=== PATIENT | female | born 1985 | race Caucasian/White ===

== ENCOUNTER 2017-10-26 09:51 | Emergency (ER) | payer OTHER ==
--- NOTE | 2017-10-26 10:39 | ED Physician Documentation ---
PD HPI Fall - Stated complaint Stated Complaint: FELL LT FOOT LAC/LT ELBOW PX - Chief complaint Chief Complaint: Ext Problem - History obtained from History obtained from: Patient, Family - History of Present Illness Mechanism of injury: Slipped Fall distance: Standing position Where injury occurred: Home Timing - onset: Today Injury(ies) location: Left Uppper Extremity, Left Lower Extremity Quality of pain: Pain Associated symptoms: No: LOC, AMS, Amnesia Symptoms improve with: Rest Worsens with: Movement, Palpation Contributing factors: No: Anticoagulated Similar symptoms before: Has not had sx before Recently seen: Not recently seen - Additional information Additional information: 32-year-old female was in the shower today when she stepped out of the shower she slipped on some soap to been spread all over the bathroom by her 2-year-old daughter. She is fallen and hit her elbow and cut her toe both on the left side. She denies any pain in the elbow or wrist has pain to extension and flexion of the elbow. Review of Systems Constitutional: denies: Fever Eyes: denies: Decreased vision Nose: denies: Congestion Throat: denies: Sore throat Respiratory: denies: Cough GI: denies: Vomiting Skin: reports: Laceration (s) Musculoskeletal: reports: Extremity pain, Joint pain. 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 - Present Medications Home Medications: Ambulatory Orders Medication Instructions Recorded Confirmed No Known Home Medications [No 10/26/17 10/26/17 Known Home Medications] - Allergies Allergies/Adverse Reactions: Allergies Allergy/AdvReac Type Severity Reaction Status Date / Time cephalexin [From Keflex] Allergy Rash Verified 10/26/17 10:01 Penicillins Allergy Rash Verified 10/26/17 10:01 - Social History Does the pt smoke?: No Smoking Status: Never smoker - Immunizations Immunizations are current?: No Immunizations: TDAP >10years/unknown PD ED PE NORMAL - Vitals Vital signs reviewed: Yes (tachy and hypertensive ) - General General: Alert and oriented X 3, Well developed/nourished, Other (32-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 There is no significant pain with supination or pronation of the forearm or flexion extension of the wrist.And a partial range of motion is tested without pain in the shoulder it does affect pain in the elbow. Distal neurovascular components are intact. On the left great toe there is a flap Loret laceration approximately 3 and half centimeters which is clean and on the medial aspect of the distal phalange.) - Neuro Neuro: Alert and oriented X 3, No motor deficit, No sensory deficit, Normal speech Eye Opening: Spontaneous Motor: Obeys Commands Verbal: Oriented GCS Score: 15 - Psych Psych: Normal mood, Normal affect Results - Vitals Vitals: Vital Signs - 24 hr 10/26/17 10/26/17 09:58 11:39 Temperature 36.8 C 36.9 C Heart Rate 110 H 85 Respiratory 16 20 Rate Blood Pressure 142/88 H 130/75 O2 Saturation 100 100 Oxygen O2 Source Room air - Rads (name of study) left elbow Radiology: Prelim report reviewed (Impression: Normal elbow radiography.), EMP read indepedently, See rad report Procedures - Laceration (location) left great toe Length in cm: 3.5 Wound type: Curved, Flap Neurovascular status: Sensory intact, Motor intact, Vascular intact Anesthesia: Lidocaine 1% Wound Preparation: Hibiclens, Irrigated copiously NS, Wound explored, To the base Skin layer closure: Nylon, Interrupted, Size #-0 - enter number (5-0) Other: Patient tolerated well, No complications, Neurovascular intact, Dressing applied, Tetanus UTD Complexity: Simple PD MEDICAL DECISION MAKING - ED course Complexity details: reviewed results, re-evaluated patient, considered differential, d/w patient, d/w family ED course: 32-year-old female with a slip fall and sprain of her left elbow is placed into a posterior splint and into a sling and she will need a follow-up evaluation in 1 week. Her laceration is fixed with interrupted nylon. Departure - Departure Disposition: 01 Home, Self Care Clinical Impression: Toe laceration Qualifiers: Encounter type: initial encounter Toe: great toe Damage to nail status: without damage Foreign body presence: without foreign body Laterality: left Qualified Code(s): S91.112A - Laceration without foreign body of left great toe without damage to nail, initial encounter Sprain of elbow, left Qualifiers: Encounter type: initial encounter Qualified Code(s): S53.402A - Unspecified sprain of left elbow, initial encounter Condition: Stable Instructions: ED Sprain Elbow, ED Laceration Foot Follow-Up: JEANETTE Moran [Provider Group] Comments: Wear the sling and splint for comfort. You will need a follow-up x-ray or reevaluation in 1 week. You should have the sutures removed from your great toe in that 7-10 day timeframe as well.
[2017-10-26] MEDS ORDERED: KETOROLAC 60 MG/2 ML VIAL IM STA (10:43)
[2017-10-26] MEDS ORDERED: LIDOCAINE 1% 2 ML VIAL ONE (11:03)
--- NOTE | 2017-10-26 11:14 | XRAY Report ---
EXAM: LEFT ELBOW RADIOGRAPHY EXAM DATE: 10/26/2017 10:57 AM. CLINICAL HISTORY: Elbow pain post injury. COMPARISON: None. TECHNIQUE: 3 views. FINDINGS: Bones: Normal. No fractures or bone lesions. Joints: Normal. No effusion. No subluxation. Soft Tissues: Normal. No soft tissue swelling. IMPRESSION: Normal elbow radiography. [facility] Referring Provider Line: [phone] SITE ID: [id number]
[2017-10-26 11:40] VITALS: BP 130/75
== END 2017-10-26 12:53 | disposition home or self-care (01) ==
LOC: ED 09:51
DX: S91.112A Laceration without foreign body of left great toe without damage to nail, initial encounter (principal); S53.402A Unspecified sprain of left elbow, initial encounter; W01.10XA Fall on same level from slipping, tripping and stumbling with subsequent striking against unspecified object, initial encounter; Y93.E1 Activity, personal bathing and showering; Y92.002 Bathroom of unspecified non-institutional (private) residence as the place of occurrence of the external cause
CPT/HCPCS: 12002; 96372; 99283

== ENCOUNTER 2019-11-11 13:55 | Emergency (ER) | payer OTHER ==
--- NOTE | 2019-11-11 15:03 | ED Physician Documentation ---
History of Present Illness - Stated complaint Stated Complaint: BODY PX,DIARRHEA,SOA - Chief complaint Chief Complaint: General - History obtained from History obtained from: Patient (34-year-old female patient comes in today with chief complaint of "not feeling well for about 4 days". She has had a low-grade fever, under 101 for several day, A headache, body aches. She has also developed a sore throat over the last 2 days, states it is more of a itching irritation more than sharp pain when swallowing. Today she feels like she cannot take a full breath, even though even though she does not feel short of breath. Today she feels that slight dizzy. 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 She did take today off of work. Last dose ibuprofen 400 mg was 2 hours prior to ar rival.) Review of Systems Constitutional: reports: Fever, Chills, Fatigue. denies: Sweats Eyes: reports: Reviewed and negative Ears: denies: Loss of hearing, Ear pain Nose: reports: Rhinorrhea / runny nose. denies: Sinus pressure / pain Throat: reports: Sore throat. denies: Swollen tonsils Cardiac: denies: Chest pain / pressure, Palpitations Respiratory: reports: Dyspnea. denies: Cough, Wheezing GI: reports: Reviewed and negative : reports: Reviewed and negative Skin: denies: Rash, Lesions Musculoskeletal: reports: Other (General body aches) Neurologic: reports: Headache. 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 - Present Medications Home Medications: Ambulatory Orders Medication Instructions Recorded Confirmed No Known Home Medications 10/26/17 10/26/17 - Allergies Allergies/Adverse Reactions: Allergies Allergy/AdvReac Type Severity Reaction Status Date / Time cephalexin [From Keflex] Allergy Rash Verified 11/11/19 14:12 Penicillins Allergy Rash Verified 11/11/19 14:12 - Social History Does the pt smoke?: No Smoking Status: Never smoker - Immunizations Immunizations are current?: No Immunizations: TDAP >10years/unknown PD ED PE NORMAL - General General: Alert and oriented X 3, No acute distress, Well developed/nourished - HEENT HEENT: Atraumatic, PERRL, EOMI, Ears normal, Moist mucous membranes, Pharynx benign - Cardiac Cardiac: RRR, No murmur - Respiratory Respiratory: No respiratory distress, Clear bilaterally - Abdomen Abdomen: Normal bowel sounds, Soft, Non tender, Non distended - Back Back: No CVA TTP - Derm Derm: Normal color, Warm and dry, No rash - Neuro Neuro: Alert and oriented X 3, lieutenant governor 2-12 intact PD ED PE EXPANDED - Neck Neck: Adenopathy (Anterior cervical bilateral) Results - Vitals Vitals: Vital Signs - 24 hr 11/11/19 14:12 Temperature 36.5 C Heart Rate 81 Respiratory 14 Rate Blood Pressure 156/90 H O2 Saturation 98 Oxygen O2 Source Room air - Labs Labs: Laboratory Tests 11/11/19 11/11/19 15:10 15:10 Influenza A (Rapid) Negative Influenza B (Rapid) Negative Group A Strep Rapid Negative - Rads (name of study) No standard instances Radiology: Final report received (Final result: No acute cardiopulmonary abnormality seen.) PD MEDICAL DECISION MAKING - ED course Complexity details: reviewed results, re-evaluated patient, considered diffe rential (Strep throat, influenza A, and Covid 19, community-acquired pneumonia.), d/w patient Departure - Departure Disposition: 01 Home, Self Care Clinical Impression: Viral URI Condition: Good Instructions: ED Viral Syndrome Comments: Your influenza test, and strep test today were both negative. You were also tested for the Covid-9 virus today. It will take roughly 2 to 3 days for the results come back. You can access your health records through[facility] online. If the Covid-19 test result comes back negative you may return to work after November 14, 2019, if the Covid-19 test result comes back positive I recommended you self quarantine at home for minimum 14 days. Forms: Activity restrictions
--- NOTE | 2019-11-11 15:20 | XRAY Report ---
Reason: cough Procedure Date: 11/11/2019 Accession Number: [id number] / [id number] Procedure: XR - Chest 2 View X-Ray CPT Code: 39403 Final Report FULL RESULT: EXAM: CHEST RADIOGRAPHY EXAM DATE: 11/11/2019 03:09 PM. CLINICAL HISTORY: Cough, shortness of breath, fever. COMPARISON: None. TECHNIQUE: 2 views. FINDINGS: Lungs/Pleura: No focal consolidation. No pleural effusion. No pneumothorax. Normal volumes. Mediastinum: Heart and mediastinal contours are normal. Other: None. IMPRESSION: No acute cardiopulmonary abnormality. [facility]
[2019-11-11 15:32] LABS: RAPID STREP SCREEN Negative (Negative)
[2019-11-11 16:11] VITALS: BP 140/84
== END 2019-11-11 16:11 | disposition home or self-care (01) ==
LOC: ED 13:55
DX: J06.9 Acute upper respiratory infection, unspecified (principal)
CPT/HCPCS: 71046; 81599; 87070; 87275; 87276; 87430; 99282; 99284

== ENCOUNTER 2020-01-19 20:27 | Emergency (ER) | payer OTHER ==
[2020-01-19 20:35] VITALS: BP 148/96
--- NOTE | 2020-01-19 21:10 | ED Physician Documentation ---
PD HPI MAJOR BURN - Stated complaint Stated Complaint: BURN - RT SIDE CHEST - Chief complaint Chief Complaint: General - History obtained from History obtained from: Patient - History of Present Illness Timing - onset: How many days ago (3) PD HPI MAJOR BURN MECHANISM: Other (hot water) Burn(s) location: Chest (some near boiling water splashed onto her chest at work. Caused local patch of blistering burn. She used some ointment on it. It started to get red around it the past day, with red streak away from it. 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 - Present Medications Home Medications: Ambulatory Orders Medication Instructions Recorded Confirmed Alprazolam [Xanax] 0.25 mg PO PRN PRN 01/19/20 01/19/20 Dextroamphetamine/Amphetamine 10 mg PO DAILY 01/19/20 01/19/20 [Adderall Xr 10 mg Capsule] Doxycycline Monohydrate 100 mg PO BID #14 tablet 01/19/20 Fluoxetine HCl [Prozac] 20 mg PO QPM 01/19/20 01/19/20 Mupirocin 1 applic TP TID #15 g 01/19/20 Naproxen 500 mg PO BID #20 tablet 01/19/20 - Allergies Allergies/Adverse Reactions: Allergies Allergy/AdvReac Type Severity Reaction Status Date / Time cephalexin [From Keflex] Allergy Rash Verified 01/19/20 20:35 Penicillins Allergy Rash Verified 01/19/20 20:35 - Social History Does the pt smoke?: No Smoking Status: Never smoker Does the pt have substance abuse?: No - Immunizations Immunizations are current?: No Immunizations: TDAP >10years/unknown - POLST Patient has POLST: No PD ED PE NORMAL - Vitals Vital signs reviewed: Yes - General General: Alert and oriented X 3, No acute distress, Well developed/nourished - Derm Derm: Normal color, Warm and dry, Other (right lateral chest on side of breast with ovoid partial thickness burn about 2 x 5 cm with yellow base. Some surrounding redness and a lymphangitic streak running toward 2 o'clock direction. No fluctuance. ) Results - Vitals Vitals: Vital Signs - 24 hr 01/19/20 20:30 Temperature 35.9 C L Heart Rate 89 Respiratory 14 Rate Blood Pressure 148/96 H O2 Saturation 98 Oxygen O2 Source Room air PD MEDICAL DECISION MAKING - ED course Complexity details: considered differential (local partial thickness burn with infection starting. ), d/w patient Departure - Departure Disposition: 01 Home, Self Care Clinical Impression: Wound infection Burn of chest wall Qualifiers: Encounter type: initial encounter Burn degree: partial thickness (2nd degree) Qualified Code(s): T21.21XA - Burn of second degree of chest wall, initial encounter Condition: Stable Record reviewed to determine appropriate education?: Yes Instructions: ED Burn Wound Check FU Infec Follow-Up: LILO DOWNEY MD [Primary Care Provider] - Prescriptions: Doxycycline Monohydrate 100 mg PO BID #14 tablet Mupirocin 1 applic TP TID #15 g Naproxen 500 mg PO BID #20 tablet Comments: Cleanse gently with soap and water 2-3 times a day and apply mupirocin antibiotic ointment. You can apply burn cream or aloe over that as well. Cover with absorbent or dry dressing to protect it. Doxycycline oral antibiotic as well twice daily for a week and naproxen anti- inflammatory 2-3 times a day for the next several days to week. Off work tomorrow. Return on if improving well enough. I would anticipated him proving reasonably well in the next couple of days and resolved within 3 to 5 days (the infection part) and then the wound heal over a week or so. Recheck if not progressing in that timeframe. Forms: Activity restrictions Discharge Date/Time: 01/19/20 21:49
[2020-01-19] MEDS ORDERED: IBUPROFEN 800 MG TABLET PO STA (21:34)
[2020-01-19] MEDS ORDERED: MUPIROCIN 2% OINT 1 GM TOP STA (21:34)
[2020-01-19] MEDS ORDERED: DOXYCYCLINE 100 MG TABLET PO STA (21:34)
== END 2020-01-19 21:49 | disposition home or self-care (01) ==
LOC: ED 20:27
DX: T21.21XA Burn of second degree of chest wall, initial encounter (principal); L08.9 Local infection of the skin and subcutaneous tissue, unspecified; X12.XXXA Contact with other hot fluids, initial encounter; Y99.0 Civilian activity done for income or pay
CPT/HCPCS: 99282; 99283; A9270

== ENCOUNTER 2024-04-10 04:46 | Emergency (ER) | payer SELFPAY ==
--- NOTE | 2024-04-10 05:06 | ED Physician Documentation ---
PD HPI NVD - Stated complaint Stated Complaint: VOMITING - Chief complaint Chief Complaint: Abd Pain - History obtained from History obtained from: Patient - History of Present Illness Timing - onset: Enter time (1100), Yesterday Timing - duration: Days (1) Timing - details: Abrupt onset, Still present Associated symptoms: Abdominal pain Contributing factors: Alcohol use. No: Sick contact, Bad food, Anticoagulated, Diabetes Improved by: Vomiting Similar symptoms before: Has not had sx before Recently seen: Not recently seen - Additonal information Additional information: Previously well Ladonna Arenas presents to our emergency department with chief complaint of vomiting and epigastric abdominal pain. She presents with pale face and pale lips. Her states she appears more pale than normal but usually she is pale.The patient denies vomiting of anything that looks like coffee grounds or black or brown material. She denies any dark or tarry stool she does state that she has had vaginal bleeding for 6 to 7 months and she is passing some clots and has some pain associated with that. She indicates her bleeding is somewhat worse than normal recently. She has not sought follow-up for this as yet. Review of Systems Constitutional: reports: Chills, Sweats. denies: Fever Ears: denies: Ear pain Nose: denies: Rhinorrhea / runny nose, Congestion Throat: denies: Sore throat Cardiac: denies: Chest pain / pressure, Palpitations Respiratory: denies: Dyspnea, Cough GI: reports: Abdominal Pain, Nausea, Vomiting. denies: Constipation, Diarrhea, Hematemesis, Bloody / black stool : reports: Vaginal bleeding (chronic passing clots >6 months). denies: Dysuria, Frequency Skin: denies: Rash Musculoskeletal: denies: Neck pain, Back pain, Extremity pain Neurologic: denies: Generalized weakness, Focal weakness PD PAST MEDICAL HISTORY - Past Medical History Past Medical History: Yes GI: GERD Psych: Depression, Anxiety, ADD/ADHD - Past Surgical History Past Surgical History: Yes /[employer]: section - Present Medications Home Medications: Ambulatory Orders Medication Instructions Recorded Confirmed Alprazolam [Xanax] 0.25 mg PO PRN PRN 01/19/20 04/10/24 Dextroamphetamine/Amphetamine 10 mg PO DAILY 01/19/20 04/10/24 [Adderall Xr 10 mg Capsule] Fluoxetine HCl [Prozac] 20 mg PO QPM 01/19/20 04/10/24 - Allergies Allergies/Adverse Reactions: Allergies Allergy/AdvReac Type Severity Reaction Status Date / Time cephalexin [From Keflex] Allergy Rash Verified 01/19/20 20:35 Penicillins Allergy Rash Verified 01/19/20 20:35 - Social History Does the pt smoke?: No Smoking Status: Never smoker Does the pt drink ETOH?: Yes ETOH Use: Liquor Does the pt have substance abuse?: No - Immunizations Immunizations are current?: No Immunizations: TDAP >10years/unknown - POLST Patient has POLST: No PD ED PE NORMAL - Vitals Vital signs reviewed: Yes (Hypertensive with wide pulse pressure) - General General: Alert and oriented X 3, Well developed/nourished, Other (The patient appears anxious and is shivering. She is pale and diaphoretic.) - HEENT HEENT: Atraumatic, PERRL, EOMI, Other (Pale lips pale conjunctive pale face) - Neck Neck: Supple, no meningeal sign, No bony TTP - Cardiac Cardiac: RRR, No murmur - Respiratory Respiratory: No respiratory distress, Clear bilaterally - Abdomen Abdomen: Normal bowel sounds, Soft, Non distended, No organomegaly, Other (Epigastric tenderness is present right upper quadrant tenderness has pain referred to the epigastrium.) - Back Back: No CVA TTP, No spinal TTP - Derm Derm: Normal color, Warm and dry, No rash Results - Vitals Vitals: Vital Signs - 24 hr 04/10/24 04/10/24 04/10/24 04:50 05:24 05:40 Temperature 36.9 C 36.7 C Heart Rate 85 73 83 Heart Rate [ Monitoring electrodes] Respiratory 24 20 22 Rate Blood Pressure 144/47 H 146/65 H 126/61 Blood Pressure [Right Brachial artery] O2 Saturation 100 100 100 04/10/24 04/10/24 04/10/24 05:58 06:20 06:40 Temperature 36.7 C Heart Rate 78 95 75 Heart Rate [ Monitoring electrodes] Respiratory 19 15 14 Rate Blood Pressure 142/70 H 151/78 H 186/66 H Blood Pressure [Right Brachial artery] O2 Saturation 100 100 100 04/10/24 04/10/24 06:56 07:07 Temperature 36.9 C 36.9 C Heart Rate Heart Rate [ 83 83 Monitoring electrodes] Respiratory 19 13 Rate Blood Pressure Blood Pressure 125/63 127/71 [Right Brachial artery] O2 Saturation 100 100 Oxygen O2 Source Room air - Labs Labs: Laboratory Tests 04/10/24 04/10/24 04/10/24 05:00 05:05 05:05 WBC RBC Hgb Hct MCV MCH MCHC RDW Plt Count MPV Neut # (Auto) Lymph # (Auto) [place] # (Auto) Eos # (Auto) Baso # (Auto) Absolute Nucleated RBC Nucleated RBC % Manual Slide Review WBC Morphology Platelet Estimate Platelet Morphology RBC Morph Micro Appear Sodium Potassium Chloride Carbon Dioxide Anion Gap BUN Creatinine Estimated GFR (MDRD) Glucose Calcium Total Bilirubin AST ALT Alkaline Phosphatase Total Protein Albumin Globulin Albumin/Globulin Ratio Lipase Urine Color YELLOW Urine Clarity HAZY Urine pH 7.5 Ur Specific [place] 1.015 Urine Protein 30 H Urine Glucose (UA) NEGATIVE Urine Ketones 15 H Urine Occult Blood LARGE H Urine Nitrite NEGATIVE Urine Bilirubin SMALL H Urine Urobilinogen 0.2 (NORMAL) Ur Leukocyte Esterase NEGATIVE Urine RBC 6-10 H Urine WBC 0-3 Ur Squamous Epith Cells RARE Squamous Urine Bacteria Rare Ur Microscopic Review INDICATED Urine Culture Comments NOT INDICATED Urine HCG, Qual NEGATIVE Blood Type Blood Type Recheck B POSITIVE Antibody Screen Crossmatch IS Only 04/10/24 04/10/24 04/10/24 05:10 05:10 05:40 WBC 8.5 RBC 2.41 L Hgb 4.5 L* Hct 17.6 L* MCV 73.0 L MCH 18.7 L MCHC 25.6 L RDW 22.5 H Plt Count 434 MPV 9.0 Neut # (Auto) 6.8 H Lymph # (Auto) 1.0 L [place] # (Auto) 0.6 Eos # (Auto) 0.0 Baso # (Auto) 0.0 Absolute Nucleated RBC 0.06 Nucleated RBC % 0.7 Manual Slide Review Indicated WBC Morphology NORMAL APPEARANCE Platelet Estimate NORMAL (130-450,000) Platelet Morphology NORMAL APPEARANCE RBC Morph Micro Appear 3+ HYPOCHROMASIA Sodium 135 Potassium 3.4 L Chloride 100 L Carbon Dioxide 24 Anion Gap 11.0 BUN 8 Creatinine 0.6 Estimated GFR (MDRD) 112 Glucose 138 H Calcium 9.8 Total Bilirubin 0.9 AST 64 H ALT 42 Alkaline Phosphatase 66 Total Protein 8.4 Albumin 4.5 Globulin 3.9 Albumin/Globulin Ratio 1.2 Lipase 59 Urine Color Urine Clarity Urine pH Ur Specific [place] Urine Protein Urine Glucose (UA) Urine Ketones Urine Occult Blood Urine Nitrite Urine Bilirubin Urine Urobilinogen Ur Leukocyte Esterase Urine RBC Urine WBC Ur Squamous Epith Cells Urine Bacteria Ur Microscopic Review Urine Culture Comments Urine HCG, Qual Blood Type B POSITIVE Blood Type Recheck Antibody Screen NEGATIVE Crossmatch IS Only See Detail Procedures - Bedside sono Bedside sono by EMP: With use of POCUS the right upper quadrant is imaged the gallbladder appears contracted there are no obvious stones. There is mild sonographic tenderness over the gallbladder this is much less so than the nonspecific epigastric pain to sonographic palpation. PD Medical Decision Making - ED course Complexity details: reviewed old records, reviewed results, re-evaluated patient, considered differential, d/w patient, d/w family Reviewed Lab Results: We reviewed a complete blood count which showed a normal white blood cell count and markedly depressed hemoglobin of 4.5 and a markedly depressed hematocrit of 17.6 there are no available comparisons. We did find with this to the platelet count was normal at 434,000 and the MCV was low at 73 with an RDW of 22.5. Chemistries showed a serum potassium low at 3.4 AST elevated at 64. Kidney and liver functions otherwise unremarkable urinalysis shows some occult blood 6-10 red blood cells per high-powered field and hCG is negative. This patient's blood work is concerning for an excess of loss of blood to a critical state. The patient's vital signs are stable without tachycardia or hypotension. The indices on the patient's blood counts indicate the process has been present for some time and the patient has had some time to adjust to this. The normal platelets and WBC indicate this is likely not bone marrow derived or pancytopenia. The patient's history of chronic vaginal blood loss is consistent with the findings on her blood counts and her history. There is no evidence of blood in stool or vomitus by patient history. ED course: Ladonna Arenas presents to the emergency department today with vomiting and epigastric pain. She is pale and diaphoretic on arrival and complained most about the nausea. We did not find any significant cannabis use we considered pancreatitis a possibility and she has normal lipase. She had no significant improvement in her nausea associated with the use of the Zofran. She was administered Phenergan with some improvement. The patient's blood counts came back critically low and despite this the patient's blood pressure and pulse remain normal. This generally indicates a chronic problem. She was not able to give us a history of hematemesis or dark tarry stool. The patient was able to provide history of chronic vaginal blood loss of a significant quantity over a significant period of time. She believes it may be 6 to 7 months. She was not able to get into follow-up as her has recently from the [facility] and they have not been able to schedule follow-up at the [facility]. At shift change the patient is getting a transfusion she has had some medication for pain and is no longer in distress. I have contacted our [facility] [employer] on-call Dr. Pappas who will check in on the patient today and I have left her care in the hands of the oncoming emergency department physician. Departure - Departure Clinical Impression: Vaginal bleeding Anemia Qualifiers: Anemia type: iron deficiency Iron deficiency anemia type: chronic blood loss Qualified Code(s): D50.0 - Iron deficiency anemia secondary to blood loss ( chronic) Condition: Critical Forms: PCP List
[2024-04-10] MEDS: SODIUM CHLORIDE 0.9% 1,000 ML IV STA (05:10)
[2024-04-10 05:17] LABS: BASOPHILS % (AUTO) 0.4 %; LYMPHOCYTES % (AUTO) 11.7 %; MEAN CORPUSCULAR HEMOGLOBIN 18.7 pg (27.0-31.0); MEAN CORPUSCULAR HGB CONC 25.6 g/dL (32.0-36.0); MONOCYTES # (AUTO) 0.6 10^3/uL (0.0-1.0); MONOCYTES % (AUTO) 6.8 %; NEUTROPHILS # (AUTO) 6.8 10^3/uL (1.5-6.6); NEUTROPHILS % (AUTO) 79.8 %; NRBC ABSOLUTE COUNT (AUTO) 0.06 x10^3/uL; NUCLEATED RED BLOOD CELLS AUTO 0.7 /100WBC; PLT - PLATELET COUNT 434 10^3/uL (130-450); RED BLOOD COUNT 2.41 10^6/uL (4.20-5.40); RED CELL DISTRIBUTION WIDTH 22.5 % (12.0-15.0); WHITE BLOOD COUNT 8.5 x10^3/uL (4.8-10.8)
[2024-04-10] MEDS: ONDANSETRON 4 MG/2 ML VIAL IVP STA (05:17)
[2024-04-10 05:22] LABS: BILIRUBIN,URINE SMALL (NEGATIVE); GLUCOSE, URINE (UA) NEGATIVE (NEGATIVE); KETONES,URINE (UA) 15 mg/dL (NEGATIVE); LEUKOCYTE ESTERASE, URINE NEGATIVE (NEGATIVE); NITRITE,URINE NEGATIVE (NEGATIVE); OCCULT BLOOD,URINE LARGE (NEGATIVE); PH,URINE 7.5 PH (5.0-7.5); PROTEIN,URINE 30 mg/dL (NEGATIVE); UROBILINOGEN,URINE 0.2 (NORMAL) E.U./dL (NORMAL)
[2024-04-10 05:24] LABS: HCG UR QUAL NEGATIVE
[2024-04-10 05:25] LABS: CLARITY,URINE HAZY (CLEAR)
[2024-04-10 05:30] LABS: HCT - HEMATOCRIT 17.6 % (37.0-47.0); HGB - HEMOGLOBIN 4.5 g/dL (12.0-16.0); SLIDE REVIEW? Indicated
[2024-04-10 05:33] LABS: ALBUMIN 4.5 g/dL (3.2-5.5); ALBUMIN/GLOBULIN RATIO 1.2 (1.0-2.2); BILIRUBIN,TOTAL 0.9 mg/dL (0.2-1.0); CALCIUM 9.8 mg/dL (8.5-10.3); CREATININE 0.6 mg/dL (0.6-1.3); POTASSIUM 3.4 mmol/L (3.5-4.5); TOTAL PROTEIN 8.4 g/dL (6.4-8.9)
[2024-04-10] MEDS: KETOROLAC 30 MG/ML VIAL IVP STA (05:36)
[2024-04-10 05:38] LABS: BACTERIA,URINE Rare /HPF (None Seen); SQUAMOUS EPITHELIAL CELL,UR RARE Squamous (<= Few); WBC,URINE 0-3 /HPF (0-5)
[2024-04-10] MEDS ORDERED: PROMETHAZINE 25 MG/1 ML VIAL ONE (05:39)
[2024-04-10] MEDS: PANTOPRAZOLE 40 MG VIAL IVP STA (05:45)
[2024-04-10] MEDS: PROMETHAZINE INJ 25 MG in SODIUM CHLORIDE 0.9% 50 ML IV STA (05:47)
[2024-04-10 05:51] LABS: PLATELET ESTIMATE, MANUAL NORMAL (130-450,000) (NORMAL); PLATELET MORPHOLOGY NORMAL APPEARANCE (NORMAL)
[2024-04-10 05:55] LABS: WBC MORPHOLOGY (MULTIPLE) NORMAL APPEARANCE (NORMAL)
[2024-04-10] MEDS: HYDROmorphone 1 MG/ML CARPUJECT IVP STA (06:29)
--- NOTE | 2024-04-10 07:39 | ED Physician Documentation ---
ED Addendum - Addendum Addendum: 04/10/24 07:[address] Orellana at this time for shift change. Briefly a 38-year-old woman who came in with vomiting and feels much better but incidentally noted was profound microcytic anemia with a hemoglobin of 4.5. She has been bleeding vaginally for 6 months or longer per her history without follow-up or intervention. She has kids at home and is not interested in further childbearing. Dr. Orellana had discussed the case by phone with Dr. Pappas, our on-call [employer] who recommended a pelvic ultrasound which is ordered and she is receiving blood at this time. Normally she would be admitted given her profound anemia but there are no beds available in the hospital so she is boarding in the emergency department for a 2 unit transfusion with recheck of H&H and gynecology consult. 04/10/24 08:27 Dr. Pappas has seen the patient and is going to write for high-dose OCP taper and I will let him know when the pelvic ultrasound is complete. 04/10/24 09:42 Pelvic ultrasound reported to me by RD as showing a large concerning uterine mass that does not look like a fibroid or other common nonmalignant etiology. I discussed with Dr. Pappas again we will try to get any pelvic MRI today to expedite her workup. 04/10/24 14:25 Pelvic MRI showing likely fibroid uterus with right ovarian cyst. Patient updated and is getting her second unit of packed red cells right now. 04/10/24 16:35 At this time, after 2 units of blood her repeat H&H is 6.1/22.4. I did recom mend a 3rd unit transfusion which she declined, she is feeling okay and is wanting to go home. She understand she is welcome to return anytime if worse. Disposition: Discharged home Condition: Stable Diagnoses: 1. Vomiting 2. Fibroid uterus 3. Vaginal bleeding 4. Profound anemia 04/10/24 16:55
--- NOTE | 2024-04-10 08:27 | CONSULTATION NOTE ---
Surgery Consult - Home Meds/Allergies Home Medications: Patient History Medication Instructions Recorded Confirmed Alprazolam [Xanax] 0.25 mg PO PRN PRN 01/19/20 04/10/24 Dextroamphetamine/Amphetamine 10 mg PO DAILY 01/19/20 04/10/24 [Adderall Xr 10 mg Capsule] Fluoxetine HCl [Prozac] 20 mg PO QPM 01/19/20 04/10/24 Allergies/Adverse Reactions: Allergies Allergy/AdvReac Type Severity Reaction Status Date / Time cephalexin [From Keflex] Allergy Rash Verified 01/19/20 20:35 Penicillins Allergy Rash Verified 01/19/20 20:35 - Vital Signs Vital Signs: Last Vital Signs Temp 98.4 F 04/10/24 07:22 Pulse 87 04/10/24 07:22 Resp 18 04/10/24 07:22 BP 116/74 04/10/24 07:22 Pulse Ox 98 04/10/24 07:22 O2 Flow Rate Intake & Output: Intake & Output 04/07/24 04/08/24 04/09/24 04/10/24 23:59 23:59 23:59 23:59 Intake Total 1066.000 Balance 1066.000 - Lab Results Result Diagrams: 04/10/24 05:10 04/10/24 05:10 - Consultation Note Consultation Note: HPI: Patient is a 38-year-old bleeding with chronic blood loss anemia presented today initially for nausea and vomiting and epigastric pain. She was pale appearing and her partner was worried about her. She has had no abnormal vomiting, and says this is just been food. During her evaluation, she was noted to be significantly anemic with an H&H of 4.5/17.6 and microcytic anemia. Upon further questioning she has had persistent vaginal bleeding for about 6 months and has not had intervention. 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 Partner has a vasectomy, so is not been on control for many years. Pain has improved as well as nausea and vomiting, although she did receive Dilaudid. Denies heavy bleeding currently and says it occasionally gets heavier when sitting on the toilet, but is not having any on her pad currently. All other symptoms reviewed and were negative except per HPI. 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 , children at home Family History No significant HEATER MECHANIC issues. Allergies Cephalexin, penicillin Medications Fluoxetine Ibuprofen Adderall Physical exam: General: Alert, oriented, no acute distress, pale Head: Normal cephalic atraumatic Eyes: PERRLA, extraocular motions intact. Respiratory: Normal rate of respiration. No accessory muscle use, normal respiratory effort. Cardiovascular: Regular rate and rhythm Abdomen: Nontender, nondistended Extremities: Normal range of motion Neuro: Oriented x3. Normal movements Psych: Appropriate mood and affect. Normal judgment and insight : deferred, currently being set up for ultrasound Plan 38-year-old with heavy abnormal uterine bleeding with chronic blood loss anemia 1. Abnormal uterine bleeding -Deferred cervical exam at this time, will consent in office. -As she is at her bleeding is not significant at this time, will likely need chronic management, discussed tapering with /2/ dosing of OCPs and continuous until we make a further plan in the office. -Transvaginal ultrasound pending, may alter plan. -Can also use ibuprofen 600 mg 3 times daily for 3 to 5 days. -Discussed etiology of abnormal bleeding and that we will have more workup. -Will likely consider OCPs, IUD, ablation. Discussed pros and cons of these options. Is not eager to move towards hysterectomy if more conservative measures can be compromised. -Will arrange outpatient follow-up with me in clinic next week. 2. Chronic blood loss anemia -Receiving 2 units of PRBCs in the ED. -Vitals normal and stable.
[2024-04-10] MEDS ORDERED: GADOTERATE MEGLUMINE 10 MMOL/20 ML VIAL ONE (10:27)
[2024-04-10] MEDS ORDERED: GADOTERATE MEGLUMINE 5 MMOL/10 ML VIAL ONE (10:27)
[2024-04-10] MEDS: LORazepam 2 MG/ML VIAL IVP STA (10:47)
--- NOTE | 2024-04-10 12:04 | Ultrasound Report ---
PROCEDURE: Pelvic Complete INDICATIONS: heavy vag bleed TECHNIQUE: Real-time transabdominal scanning was performed of the pelvic organs, with image documentation. COMPARISON: None FINDINGS: Uterus: Uterus is anteverted and enlarged in size at 14.7 x 12.0 x 12.4 cm. The myometrium is heter ogeneous. The endometrium is not seen. Large fibroid versus neoplasm involving the entire uterus me asuring 11.0 x 10.3 x 11.3 cm. Ovaries: Not seen Other: No free pelvic fluid. IMPRESSION: 1.Heterogeneous vascular mass involving the entire uterus, differential includes fibroid versus neopl asm. Pelvic MRI has been ordered at the time of dictation. 2.The ovaries are not seen. Reviewed by: Pedro Hayden MD on 04/10/2024 12:03 PM PDT Approved by: Pedro Hayden MD on 04/10/2024 12:03 PM PDT Station ID: [id number]
[2024-04-10] MEDS: GADOTERATE MEGLUMINE 10 MMOL/20 ML VIAL IVP ONE (12:36)
[2024-04-10 13:42] VITALS: O2SAT 100
--- NOTE | 2024-04-10 14:14 | MRI Report ---
PROCEDURE: Pelvis W/WO INDICATIONS: uterine mass CONTRAST: CLARISCAN 21.8 ML TECHNIQUE: Coronal ultra fast SE, sagittal breath-hold T2 FSE; axial T1 FSE with and without fat saturation thro ugh the pelvis. Optional long- and short-axis uterine nonbreath-hold T2 FSE through the uterus. Sag ittal or axial dynamic ultra fast GE during administration of contrast. Post-contrast axial or coron al ultra fast GE / 2-D spoiled GE with fat saturation from the iliac crests to the symphysis. Option al diffusion weighted imaging and ADC may be performed. COMPARISON: Pelvic ultrasound 04/10/2024. FINDINGS: Image quality: Excellent. Uterus: Uterus is anteverted and retroflexed. There is a large, well-circumscribed mass in the uteru s measuring 11.3 x 11.7 x 9.5 cm with multiple T2 hypointense nodules. Close inspection of the lower uterine segment demonstrates that the endometrial stripe is actually displaced to the left and marked ly compressed, and that this mass is within the right myometrium. There is a rim of myometrium surrou nding this mass entirely. The cervical canal appears within normal limits, containing a few tiny nabo thian cysts. Adnexa: The right ovary contains a unilocular, dominant homogeneous cyst measuring 7.0 x 5.9 x 5.4 cm . Left ovarian morphology is normal. Urinary system: Bladder wall is normal in thickness. Distal ureters are non distended. Urethra alen ears normal in morphology. Nodes and vessels: No pelvic or inguinal adenopathy by size criteria. Iliac vessels are normal in s ize. Bowel and peritoneum: No pathologic free pelvic fluid. Inferior colon and small bowel loops are nor mal in caliber. Soft tissues: No inguinal hernias. No findings of pelvic floor incompetence in the absence of provo cation. Bones: Marrow demonstrates normal overall signal. IMPRESSION: 11.7 cm probable myometrial mass most suggestive of a uterine fibroid. The endometrial canal appears to be compressed left. This mass being endometrial in origin is felt le ss likely. HSG could be performed for confirmation. 7.0 cm right ovarian simple cyst. This is most likely physiologic. There are no suspicious features. No pelvic adenopathy. Reviewed by: Socorro Pop MD on 04/10/2024 2:13 PM PDT Approved by: Socorro Pop MD on 04/10/2024 2:13 PM PDT Station ID: [id number]
[2024-04-10 16:27] LABS: HCT - HEMATOCRIT 22.4 % (37.0-47.0)
[2024-04-10 16:29] LABS: HGB - HEMOGLOBIN 6.1 g/dL (12.0-16.0)
[2024-04-10 16:54] VITALS: BP 116/58
== END 2024-04-10 16:51 | disposition home or self-care (01) ==
LOC: ED 04:46
DX: N93.9 Abnormal uterine and vaginal bleeding, unspecified (principal); D50.0 Iron deficiency anemia secondary to blood loss (chronic); D25.9 Leiomyoma of uterus, unspecified; R11.10 Vomiting, unspecified; Z79.899 Other long term (current) drug therapy
CPT/HCPCS: 36415; 36430; 72197; 76856; 80053; 81001; 81025; 83690; 85014; 85018; 85025; 86850; 86900; 86901; 86920; 96365; 96375; 99285; A9575; J1170; J2060; J7040; P9016; 81003; 87086

== ENCOUNTER 2024-04-16 14:20 | Outpatient (CLI) | payer SELFPAY ==
[2024-04-16 14:31] LABS: HCT - HEMATOCRIT 24.9 % (37.0-47.0); MEAN CORPUSCULAR HGB CONC 27.7 g/dL (32.0-36.0); MEAN CORPUSCULAR VOLUME 79.6 fL (81.0-99.0); MEAN PLATELET VOLUME 8.7 fL (7.9-10.8); RED BLOOD COUNT 3.13 10^6/uL (4.20-5.40); RED CELL DISTRIBUTION WIDTH 23.4 % (12.0-15.0); WHITE BLOOD COUNT 5.1 x10^3/uL (4.8-10.8)
[2024-04-16 14:46] LABS: HGB - HEMOGLOBIN 6.9 g/dL (12.0-16.0)
[2024-04-16 15:07] LABS: THYROID STIMULATING HORMONE 1.99 uIU/mL (0.34-5.60)
[2024-04-16 15:12] LABS: FERRITIN 6.3 ng/mL (11.0-306.8)
[2024-04-16 15:20] LABS: ALBUMIN 4.2 g/dL (3.2-5.5); ALBUMIN/GLOBULIN RATIO 1.2 (1.0-2.2); BILIRUBIN,TOTAL 0.7 mg/dL (0.2-1.0); CALCIUM 9.4 mg/dL (8.5-10.3); CREATININE 0.6 mg/dL (0.6-1.3); POTASSIUM 4.1 mmol/L (3.5-4.5); TOTAL PROTEIN 7.7 g/dL (6.4-8.9)
[2024-04-16 21:58] LABS: ESTIMATED AVERAGE GLUCOSE 100 mg/dL (70-100); HEMOGLOBIN A1c% 5.1 % (4.27-6.07)
== END 2024-04-16 14:21 | disposition home or self-care (01) ==
LOC: LAB 14:20
PROVIDERS: ATTEND Obstetrics & Gynecology
DX: R94.5 Abnormal results of liver function studies (principal); F10.10 Alcohol abuse, uncomplicated; D50.0 Iron deficiency anemia secondary to blood loss (chronic); N93.9 Abnormal uterine and vaginal bleeding, unspecified
CPT/HCPCS: 36415; 80053; 82728; 83036; 83540; 84443; 84466; 85027

== ENCOUNTER 2024-05-12 22:44 | Emergency (ER) | payer MEDICAID ==
--- NOTE | 2024-05-12 23:10 | ED Physician Documentation ---
PD HPI NVD - Stated complaint Stated Complaint: VOMITING - Chief complaint Chief Complaint: Abd Pain - History obtained from History obtained from: Patient - History of Present Illness Timing - onset: How many hours ago, Today Timing - duration: Hours Timing - details: Abrupt onset, Still present Associated symptoms: Abdominal pain (intermittent mid abd cramping.), Loss of appetite. No: Fever, Hematemesis Contributing factors: No: Sick contact, Bad food Improved by: Vomiting Worsened by: Eating Similar symptoms before: No diagnosis (similar about a week ago treated in ER.) Recently seen: Clinic (Seen [facility] with repeat Hgb of 6.9, up from 6.1 and is scheduled for pre-op appt then hysterectomy early May.), Emergency Dept (for N/V episode similar to current presentation. Treated with fluids and meds with improvement.) Review of Systems Constitutional: denies: Fever, Chills Neurologic: reports: Generalized weakness. 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 - Present Medications Home Medications: Ambulatory Orders Medication Instructions Recorded Confirmed Alprazolam [Xanax] 0.25 mg PO PRN PRN 01/19/20 04/10/24 Dextroamphetamine/Amphetamine 10 mg PO DAILY 01/19/20 04/10/24 [Adderall Xr 10 mg Capsule] Fluoxetine HCl [Prozac] 20 mg PO QPM 01/19/20 04/10/24 Ibuprofen [Motrin] 600 mg PO TID #30 tab 04/10/24 Norgestimate-Ethinyl Estradiol 1 each PO DAILY #90 tablet 04/10/24 [Sprintec 28 Day Tablet] Ondansetron Odt [Zofran] 4 mg TL Q6H PRN #10 tablet 05/13/24 Promethazine Supp [Phenergan Supp] 25 mg NH Q6H PRN #5 supp 05/13/24 Tranexamic Acid 650 mg PO TID #21 tablet 05/13/24 - Allergies Allergies/Adverse Reactions: Allergies Allergy/AdvReac Type Severity Reaction Status Date / Time cephalexin [From Keflex] Allergy Rash Verified 05/12/24 22:47 Penicillins Allergy Rash Verified 05/12/24 22:47 - Social History Does the pt smoke?: No Smoking Status: Never smoker Does the pt drink ETOH?: Yes Does the pt have substance abuse?: No - Immunizations Immunizations are current?: No Immunizations: TDAP >10years/unknown - POLST Patient has POLST: No PD ED PE NORMAL - Vitals Vital signs reviewed: Yes - General General: Alert and oriented X 3, Well developed/nourished, Other (appears ill with holding emesis bag and having heaving. ) - Cardiac Cardiac: No murmur. No: RRR (regular but tachycardic.) - Respiratory Respiratory: No respiratory distress, Clear bilaterally - Abdomen Abdomen: Soft, Non distended, Other (tender mid abd without guarding. Some tender left. Not tender RLQ nor GB area in particular. ). No: Normal bowel sounds (diminished diffusely. ) - Female Female : Deferred - Rectal Rectal: Deferred - Back Back: No CVA TTP - Derm Derm: Normal color, Warm and dry Results - Vitals Vitals: Vital Signs - 24 hr 05/12/24 05/13/24 05/13/24 23:51 01:00 01:57 Temperature 37 C Heart Rate 103 H 89 89 Respiratory 18 16 16 Rate Blood Pressure 128/62 133/68 H 122/71 O2 Saturation 99 99 99 Oxygen O2 Source Room air - Labs Labs: Laboratory Tests 05/12/24 05/12/24 05/12/24 22:47 23:40 23:40 WBC 4.2 L RBC 3.23 L Hgb 6.9 L* Hct 25.3 L MCV 78.3 L MCH 21.4 L MCHC 27.3 L RDW 21.0 H Plt Count 330 MPV 9.2 Neut # (Auto) 2.5 Lymph # (Auto) 1.0 L [place] # (Auto) 0.5 Eos # (Auto) 0.1 Baso # (Auto) 0.1 Absolute Nucleated RBC 0.00 Nucleated RBC % 0.0 Sodium 136 Potassium 3.8 Chloride 102 Carbon Dioxide 23 Anion Gap 11.0 BUN 8 Creatinine 0.6 Estimated GFR (MDRD) 112 Glucose 95 Calcium 9.4 Magnesium 1.5 L Total Bilirubin 0.5 AST 54 H ALT 41 Alkaline Phosphatase 58 Total Protein 7.1 Albumin 3.8 Globulin 3.3 Albumin/Globulin Ratio 1.2 Lipase 68 Urine Color DARK YELLOW Urine Clarity CLOUDY Urine pH 7.5 Ur Specific [place] 1.015 Urine Protein 30 H Urine Glucose (UA) NEGATIVE Urine Ketones NEGATIVE Urine Occult Blood LARGE H Urine Nitrite NEGATIVE Urine Bilirubin NEGATIVE Urine Urobilinogen 0.2 (NORMAL) Ur Leukocyte Esterase NEGATIVE Urine RBC TNTC H Urine WBC 6-10 H Urine WBC Clumps PRESENT Ur Squamous Epith Cells RARE Squamous Urine Bacteria Rare Ur Microscopic Review INDICATED Urine Culture Comments NOT INDICATED Blood Type Antibody Screen 05/12/24 23:40 WBC RBC Hgb Hct MCV MCH MCHC RDW Plt Count MPV Neut # (Auto) Lymph # (Auto) [place] # (Auto) Eos # (Auto) Baso # (Auto) Absolute Nucleated RBC Nucleated RBC % Sodium Potassium Chloride Carbon Dioxide Anion Gap BUN Creatinine Estimated GFR (MDRD) Glucose Calcium Magnesium Total Bilirubin AST ALT Alkaline Phosphatase Total Protein Albumin Globulin Albumin/Globulin Ratio Lipase Urine Color Urine Clarity Urine pH Ur Specific [place] Urine Protein Urine Glucose (UA) Urine Ketones Urine Occult Blood Urine Nitrite Urine Bilirubin Urine Urobilinogen Ur Leukocyte Esterase Urine RBC Urine WBC Urine WBC Clumps Ur Squamous Epith Cells Urine Bacteria Ur Microscopic Review Urine Culture Comments Blood Type B POSITIVE Antibody Screen NEGATIVE PD Medical Decision Making - ED course Complexity details: reviewed old records (prior visit with iaging results showing large uterine fibroid. No abd process at the time with presentation similar to current of N/V and abd crmaps. ), reviewed results (.1 before that, and certainly better than the 4.5 initial for which she was transfused. ), considered differential (compared to recent blood test. Is on hormones. Consider adding TXA short term. Appt soon for hysterectomy early May. I assume the N/V/cramps is not caused by the uterine bleeding. Does not seem to have biliary cause on prior imaging. I did not see need for reimaging. LFTs good.), d/w patient Departure - Departure Disposition: 01 Home, Self Care Clinical Impression: Nausea and vomiting, Anemia, Fibroid, uterine Condition: Stable Record reviewed to determine appropriate education?: Yes Instructions: ED Nausea Vomiting [facility]: [facility] [Provider Group] Prescriptions: Promethazine Supp [Phenergan Supp] 25 mg NH Q6H PRN #5 supp PRN Reason: Nausea / Vomiting Tranexamic Acid 650 mg PO TID #21 tablet Ondansetron Odt [Zofran] 4 mg TL Q6H PRN #10 tablet PRN Reason: Nausea / Vomiting Comments: Mineral food initially and frequent fluids. Progress diet as tolerated. Probably not much other than sips of water and crackers overnight tonight and in the morning. Ondansetron if needed for nausea. I wrote a prescription for some as well. Promethazine suppositories if vomiting despite the Zofran. Add tranexamic acid 3 times daily for the next week to see if that helps with the uterine bleeding. Your blood count today is the same as the previous one at 6.9. Follow-up with the women's health clinic. I think that your nausea and vomiting now relate to a different cause than just the uterine bleeding. Continue with your omeprazole. Mineral food for the next week or 2. I sent your prescription to your preferred pharmacy. Forms: PCP List Discharge Date/Time: 05/13/24 01:57
[2024-05-12] MEDS: SODIUM CHLORIDE 0.9% 1,000 ML IV STA (23:44)
[2024-05-12] MEDS: DROPERIDOL 5 MG/2 ML VIAL IVP STA (23:45)
[2024-05-12] MEDS: KETOROLAC 15 MG/ML VIAL IVP STA (23:45)
[2024-05-12 23:48] LABS: BASOPHILS # (AUTO) 0.1 10^3/uL (0.0-0.1); BASOPHILS % (AUTO) 1.4 %; EOSINOPHILS # (AUTO) 0.1 10^3/uL (0.0-0.7); EOSINOPHILS % (AUTO) 1.2 %; HCT - HEMATOCRIT 25.3 % (37.0-47.0); LYMPHOCYTES % (AUTO) 24.5 %; MEAN CORPUSCULAR HEMOGLOBIN 21.4 pg (27.0-31.0); MEAN CORPUSCULAR HGB CONC 27.3 g/dL (32.0-36.0); MEAN CORPUSCULAR VOLUME 78.3 fL (81.0-99.0); MEAN PLATELET VOLUME 9.2 fL (7.9-10.8); MONOCYTES # (AUTO) 0.5 10^3/uL (0.0-1.0); NEUTROPHILS # (AUTO) 2.5 10^3/uL (1.5-6.6); NEUTROPHILS % (AUTO) 60.4 %; PLT - PLATELET COUNT 330 10^3/uL (130-450); RED BLOOD COUNT 3.23 10^6/uL (4.20-5.40); WHITE BLOOD COUNT 4.2 x10^3/uL (4.8-10.8)
[2024-05-12 23:49] LABS: BILIRUBIN,URINE NEGATIVE (NEGATIVE); GLUCOSE, URINE (UA) NEGATIVE (NEGATIVE); KETONES,URINE (UA) NEGATIVE (NEGATIVE); LEUKOCYTE ESTERASE, URINE NEGATIVE (NEGATIVE); NITRITE,URINE NEGATIVE (NEGATIVE); OCCULT BLOOD,URINE LARGE (NEGATIVE); PH,URINE 7.5 PH (5.0-7.5); PROTEIN,URINE 30 mg/dL (NEGATIVE); UROBILINOGEN,URINE 0.2 (NORMAL) E.U./dL (NORMAL)
[2024-05-12 23:52] LABS: CLARITY,URINE CLOUDY (CLEAR)
[2024-05-12 23:53] LABS: HGB - HEMOGLOBIN 6.9 g/dL (12.0-16.0)
[2024-05-12 23:58] LABS: BACTERIA,URINE Rare /HPF (None Seen); RBC,URINE TNTC /HPF (0-5); SQUAMOUS EPITHELIAL CELL,UR RARE Squamous (<= Few); WBC CLUMPS,URINE PRESENT
[2024-05-13] VITALS: O2SAT 99
[2024-05-13 00:17] LABS: MAGNESIUM 1.5 mg/dL (1.7-2.3)
[2024-05-13 00:23] LABS: ALBUMIN 3.8 g/dL (3.2-5.5); ALBUMIN/GLOBULIN RATIO 1.2 (1.0-2.2); BILIRUBIN,TOTAL 0.5 mg/dL (0.2-1.0); CALCIUM 9.4 mg/dL (8.5-10.3); CREATININE 0.6 mg/dL (0.6-1.3); POTASSIUM 3.8 mmol/L (3.5-4.5); TOTAL PROTEIN 7.1 g/dL (6.4-8.9)
[2024-05-13] MEDS ORDERED: ONDANSETRON ODT 4 MG Prepack 2 TL PRN (01:32)
[2024-05-13 01:59] VITALS: BP 122/71
== END 2024-05-13 01:57 | disposition home or self-care (01) ==
LOC: ED 22:44
DX: R11.2 Nausea with vomiting, unspecified (principal); D64.9 Anemia, unspecified; D25.9 Leiomyoma of uterus, unspecified; F32.A Depression, unspecified; F41.9 Anxiety disorder, unspecified; Z79.899 Other long term (current) drug therapy
CPT/HCPCS: 36415; 80053; 81001; 81003; 83690; 83735; 85025; 86850; 86900; 86901; 87086; 96374; 99283

== ENCOUNTER 2024-05-19 10:34 | Emergency (ER) | payer MEDICAID ==
[2024-05-19 11:19] LABS: BASOPHILS # (AUTO) 0.1 10^3/uL (0.0-0.1); BASOPHILS % (AUTO) 0.9 %; EOSINOPHILS # (AUTO) 0.1 10^3/uL (0.0-0.7); HCT - HEMATOCRIT 27.3 % (37.0-47.0); HGB - HEMOGLOBIN 7.5 g/dL (12.0-16.0); LYMPHOCYTES # (AUTO) 1.5 10^3/uL (1.5-3.5); LYMPHOCYTES % (AUTO) 21.5 %; MEAN CORPUSCULAR HEMOGLOBIN 21.2 pg (27.0-31.0); MEAN CORPUSCULAR HGB CONC 27.5 g/dL (32.0-36.0); MEAN CORPUSCULAR VOLUME 77.3 fL (81.0-99.0); MEAN PLATELET VOLUME 9.2 fL (7.9-10.8); MONOCYTES # (AUTO) 0.7 10^3/uL (0.0-1.0); MONOCYTES % (AUTO) 10.5 %; NEUTROPHILS # (AUTO) 4.5 10^3/uL (1.5-6.6); NEUTROPHILS % (AUTO) 65.5 %; NRBC ABSOLUTE COUNT (AUTO) 0.02 x10^3/uL; NUCLEATED RED BLOOD CELLS AUTO 0.3 /100WBC; PLT - PLATELET COUNT 448 10^3/uL (130-450); RED BLOOD COUNT 3.53 10^6/uL (4.20-5.40); RED CELL DISTRIBUTION WIDTH 20.5 % (12.0-15.0); WHITE BLOOD COUNT 6.9 x10^3/uL (4.8-10.8)
[2024-05-19] MEDS ORDERED: iohexoL-300 100 ML VIAL ONE (11:28)
--- NOTE | 2024-05-19 11:31 | ED Physician Documentation ---
History of Present Illness - Stated complaint Stated Complaint: VOMITTING - Chief complaint Chief Complaint: Abd Pain - History obtained from History obtained from: Patient, Family - History of Present Illness Pain level max: 5 Pain level now: 5 - Additonal information Additional information: Patient is a 38-year-old female who presents to the emergency department with abdominal pain, nausea and vomiting. She states that this started about a week ago. Was seen here given Zofran and Phenergan suppositories. She states that the symptoms have not improved. No fevers or chills. She states that she has chronic vaginal bleeding from a large uterine fibroid and is scheduled for consultation for hysterectomy in about 10 days. She is not on blood thinners. Nothing makes it better or worse. She states most of the pain is in her lower abdomen. The diarrhea has been loose, watery. No recent antibiotics. Patient had similar symptoms about a month ago as well. 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 - Present Medications Home Medications: Ambulatory Orders Medication Instructions Recorded Confirmed Alprazolam [Xanax] 0.25 mg PO PRN PRN 01/19/20 04/10/24 Dextroamphetamine/Amphetamine 10 mg PO DAILY 01/19/20 04/10/24 [Adderall Xr 10 mg Capsule] Fluoxetine HCl [Prozac] 20 mg PO QPM 01/19/20 05/19/24 Ibuprofen [Motrin] 600 mg PO TID #30 tab 04/10/24 05/19/24 Norgestimate-Ethinyl Estradiol 1 each PO DAILY #90 tablet 04/10/24 05/19/24 [Sprintec 28 Day Tablet] Ondansetron Odt [Zofran] 4 mg TL Q6H PRN #10 tablet 05/13/24 05/19/24 Promethazine Supp [Phenergan Supp] 25 mg [place] Q6H PRN #5 supp 05/13/24 05/19/24 Tranexamic Acid 650 mg PO TID #21 tablet 05/13/24 Famotidine [Pepcid] 20 mg PO BID #60 tablet 05/19/24 Ondansetron Odt [Zofran] 4 - 8 mg TL Q6H PRN #20 tablet 05/19/24 Prochlorperazine Maleate 10 mg PO Q6H PRN #10 tablet 05/19/24 [Compazine] oxyCODONE [Roxicodone] 5 - 10 mg PO Q6H PRN #14 tablet 05/19/24 MDD 6 - Allergies Allergies/Adverse Reactions: Allergies Allergy/AdvReac Type Severity Reaction Status Date / Time cephalexin [From Keflex] Allergy Rash Verified 05/19/24 10:39 Penicillins Allergy Rash Verified 05/19/24 10:39 - Social History Does the pt smoke?: No Smoking Status: Never smoker Does the pt drink ETOH?: No Does the pt have substance abuse?: Yes Substance Use and Type: CBD oil / Products - Immunizations Immunizations are current?: No Immunizations: TDAP >10years/unknown - POLST Patient has POLST: No PD ED PE NORMAL - Vitals Vital signs reviewed: Yes - General General: Alert and oriented X 3, No acute distress - HEENT HEENT: PERRL, Moist mucous membranes - Neck Neck: Supple, no meningeal sign - Cardiac Cardiac: RRR, Strong equal pulses - Respiratory Respiratory: No respiratory distress, Clear bilaterally - Abdomen Abdomen: Soft, Non tender, Non distended - Derm Derm: Warm and dry - Extremities Extremities: No edema, No calf tenderness / cord - Neuro Neuro: Alert and oriented X 3 - Psych Psych: Normal mood, Normal affect Results - Vitals Vitals: Vital Signs - 24 hr 05/19/24 05/19/24 05/19/24 10:39 12:49 13:02 Temperature 36.6 C 36.7 C Heart Rate 115 H 88 84 Respiratory 18 16 18 Rate Blood Pressure 122/75 119/73 O2 Saturation 97 96 96 05/19/24 14:08 Temperature Heart Rate 87 Respiratory 18 Rate Blood Pressure 130/71 O2 Saturation 95 Oxygen O2 Source Room air - Labs Labs: Laboratory Tests 0905/19/24 05/19/24 11:11 11:11 11:17 WBC 6.9 RBC 3.53 L Hgb 7.5 L Hct 27.3 L MCV 77.3 L MCH 21.2 L MCHC 27.5 L RDW 20.5 H Plt Count 448 MPV 9.2 Neut # (Auto) 4.5 Lymph # (Auto) 1.5 [place] # (Auto) 0.7 Eos # (Auto) 0.1 Baso # (Auto) 0.1 Absolute Nucleated RBC 0.02 Nucleated RBC % 0.3 PT INR APTT Sodium 133 L Potassium 3.1 L Chloride 99 L Carbon Dioxide 27 Anion Gap 7.0 BUN 8 Creatinine 0.6 Estimated GFR (MDRD) 112 Glucose 119 H Calcium 9.3 Total Bilirubin 0.8 AST 190 H ALT 155 H Alkaline Phosphatase 56 Total Protein 7.0 Albumin 4.0 Globulin 3.0 Albumin/Globulin Ratio 1.3 Lipase 73 Urine Color Urine Clarity Urine pH Ur Specific [place] Urine Protein Urine Glucose (UA) Urine Ketones Urine Occult Blood Urine Nitrite Urine Bilirubin Urine Urobilinogen Ur Leukocyte Esterase Urine RBC Urine WBC Ur Squamous Epith Cells Urine Bacteria Ur Microscopic Review Urine Culture Comments Urine HCG, Qual NEGATIVE Blood Type Antibody Screen 05/19/24 05/19/24 05/19/24 11:17 11:21 11:21 WBC RBC Hgb Hct MCV MCH MCHC RDW Plt Count MPV Neut # (Auto) Lymph # (Auto) [place] # (Auto) Eos # (Auto) Baso # (Auto) Absolute Nucleated RBC Nucleated RBC % PT 14.1 H INR 1.3 H APTT 24.6 L Sodium Potassium Chloride Carbon Dioxide Anion Gap BUN Creatinine Estimated GFR (MDRD) Glucose Calcium Total Bilirubin AST ALT Alkaline Phosphatase Total Protein Albumin Globulin Albumin/Globulin Ratio Lipase Urine Color RED/BLOODY Urine Clarity CLOUDY Urine pH 6.5 Ur Specific [place] 1.025 Urine Protein >=300 H Urine Glucose (UA) 100 H Urine Ketones 15 H Urine Occult Blood LARGE H Urine Nitrite POSITIVE H Urine Bilirubin SMALL H Urine Urobilinogen 2 H Ur Leukocyte Esterase MODERATE H Urine RBC TNTC H Urine WBC 11-25 H Ur Squamous Epith Cells RARE Squamous Urine Bacteria Moderate H Ur Microscopic Review INDICATED Urine Culture Comments INDICATED Urine HCG, Qual Blood Type B POSITIVE Antibody Screen NEGATIVE PD Medical Decision Making - ED course Complexity details: reviewed results, re-evaluated patient, considered differential, d/w patient ED course: Patient with chronic anemia, but improved from last week. She is not symptomatic with this, therefore we will not transfuse at this time. She we will continue her current medications at home. We will place on pain medication and nausea medications. Also will trial her on an H2 sigifredo as she does have some epigastric pain occasionally. Recommend that she follow-up closely with her doctor for further care and keep her appointment with the disc inspector for her hysterectomy. Patient is well-appearing, nontoxic. Afebrile. Tolerating p.o. without difficulty. Patient counseled regarding signs and symptoms for which I believe and urgent re-evaluation would be necessary. Patient with good understanding of and agreement to plan and is comfortable going home at this time This document was made in part using voice recognition software. While efforts are made to proofread this document, sound alike and grammatical errors may occur. Departure - Departure Disposition: 01 Home, Self Care Clinical Impression: Vaginal bleeding Vomiting Qualifiers: Vomiting type: unspecified Nausea presence: with nausea Qualified Code(s): R11.2 - Nausea with vomiting, unspecified Fibroid, uterine Qualifiers: Uterine leiomyoma location: unspecified location Qualified Code(s): D25.9 - Leiomyoma of uterus, unspecified Anemia Qualifiers: Anemia type: unspecified type Qualified Code(s): D64.9 - Anemia, unspecified Condition: Good Instructions: ED Abdominal Pain Female Non-Specific Abdominal Pain, ED Nausea Vomiting Follow-Up: your,doctor within 1 week [Other] Prescriptions: Prochlorperazine Maleate [Compazine] 10 mg PO Q6H PRN #10 tablet PRN Reason: Nausea / Vomiting Famotidine [Pepcid] 20 mg PO BID #60 tablet oxyCODONE [Roxicodone] 5 - 10 mg PO Q6H PRN #14 tablet MDD 6 PRN Reason: pain Ondansetron Odt [Zofran] 4 - 8 mg TL Q6H PRN #20 tablet PRN Reason: Nausea / Vomiting Comments: Your prescriptions were done to [facility]. Please follow-up with your doctor for further care. Please return if you worsen. As we discussed if your vomiting continues after your surgery, you may benefit from an endoscopy/colonoscopy. This can be performed with GI. I am prescribing a short course of narcotic pain medication for you. These are potentially dangerous and addictive medications that should be used carefully. These medications may constipate you. Take an [id number] stool softener (docusate) twice daily with plenty of water while taking these medications. If you go 24 hours without a bowel movement, take [id number] miralax, per package instructions. Do not drink or drive while taking these medications. If you received narcotic or sedating medications while in the emergency department, do not drive for 24 hours. Store this medication in a safe, secure place and out of reach of children. It is a violation of federal law to give or sell this medication to another person or to use in a manner other than prescribed. The ED will not refill narcotic prescriptions, including prescriptions lost or stolen. To dispose of unwanted medications: 1. [facility] at [address] in [place] has a medication drop box. They accept prescription medications (in pill form) Saturday through Saturday 9:00 a.m. to 5:00 p.m. 2. The [facility] [employer] accepts prescription medications (in pill form only) for disposal year round. Call for more information. 3. Contact the [facility] for the next [facility] sponsored prescription drug collection event. , [phone], or [phone]; Forms: PCP List Discharge Date/Time: 05/19/24 14:17
[2024-05-19 11:32] LABS: ALBUMIN/GLOBULIN RATIO 1.3 (1.0-2.2); BILIRUBIN,TOTAL 0.8 mg/dL (0.2-1.0); CALCIUM 9.3 mg/dL (8.5-10.3); CREATININE 0.6 mg/dL (0.6-1.3); POTASSIUM 3.1 mmol/L (3.5-4.5)
[2024-05-19 11:32] LABS: BILIRUBIN,URINE SMALL (NEGATIVE); GLUCOSE, URINE (UA) 100 mg/dL (NEGATIVE); KETONES,URINE (UA) 15 mg/dL (NEGATIVE); LEUKOCYTE ESTERASE, URINE MODERATE (NEGATIVE); NITRITE,URINE POSITIVE (NEGATIVE); OCCULT BLOOD,URINE LARGE (NEGATIVE); PH,URINE 6.5 PH (5.0-7.5); PROTEIN,URINE >=300 mg/dL (NEGATIVE); UROBILINOGEN,URINE 2 E.U./dL (NORMAL)
[2024-05-19 11:33] LABS: CLARITY,URINE CLOUDY (CLEAR); HCG UR QUAL NEGATIVE
[2024-05-19 11:36] LABS: PARTIAL THROMBOPLASTIN TIME 24.6 secs (24.9-33.3)
[2024-05-19 11:39] LABS: BACTERIA,URINE Moderate /HPF (None Seen); RBC,URINE TNTC /HPF (0-5); SQUAMOUS EPITHELIAL CELL,UR RARE Squamous (<= Few)
[2024-05-19 11:40] LABS: INR 1.3 (0.8-1.2); PT - PROTHROMBIN TIME 14.1 secs (9.9-12.6)
[2024-05-19] MEDS: SODIUM CHLORIDE 0.9% 1,000 ML IV STA (11:40)
[2024-05-19] MEDS: ONDANSETRON 4 MG/2 ML VIAL IVP STA (11:40)
[2024-05-19] MEDS: HYDROmorphone 1 MG/ML CARPUJECT IVP STA (11:44)
--- NOTE | 2024-05-19 13:13 | CT Report ---
PROCEDURE: Abdomen/Pelvis W INDICATIONS: n/v/d lower abd pain CONTRAST: 100ml [id number] TECHNIQUE: After the administration of intravenous contrast, a CT scan of the abdomen and pelvis was performed. Images were recorded and evaluated at appropriate window settings. Reformats: coronal and sagittal. F or radiation dose reduction, the following was used: automated exposure control, adjustment of mA and /or kV according to patient size. COMPARISON: MRI pelvis 04/10/2024. FINDINGS: Image quality: Diagnostic. Lower chest: Unremarkable. Liver: No solid mass. Hepatic steatosis. Gallbladder: No radiopaque stones or wall thickening. Biliary tree: No intrahepatic or extrahepatic dilation, accounting for age. Spleen: No splenomegaly. Pancreas: No pancreatic ductal dilation. Adrenals: No adrenal nodule. Kidneys and ureters: No hydronephrosis. Nonobstructing 3 mm stone at the inferior pole the right kidn ey. Nonobstructing stones at the inferior pole left kidney measuring up to 3 mm. No renal cystic lesi on which requires follow up. No solid mass. Stomach, bowel and peritoneum: No gastric or small bowel dilation. No abnormal wall thickening. No pa thologic free fluid. Normal appendix Lymph nodes: No central or retroperitoneal adenopathy. Vessels: No infrarenal aortic aneurysm. Patent portal vein. PELVIS Reproductive organs: Redemonstration of large heterogeneous uterine mass measuring approximately 12 x 13 x 11.3 cm.. Bladder: No abnormal wall thickening, accounting for underdistention. Pelvic lymph nodes: No pelvic adenopathy by size criteria. Bones: No aggressive osseous abnormality. Other: No significant ventral or inguinal hernia. IMPRESSION: 1.Uterus is enlarged with redemonstration of large heterogeneous mass measuring up to 13 cm. May repr esent a fibroid. This is better evaluated on prior MRI. Neoplasm is not definitely excluded. 2.Nonobstructing 3 mm renal stones bilaterally. 3.Hepatic steatosis. Reviewed by: Pedro Hayden MD on 05/19/2024 1:12 PM PDT Approved by: Pedro Hayden MD on 05/19/2024 1:12 PM PDT Station ID: [id number]
[2024-05-19] MEDS: iohexoL-300 100 ML VIAL IVP ONE (13:15)
[2024-05-19 14:15] VITALS: BP 130/71; O2SAT 95
== END 2024-05-19 14:17 | disposition home or self-care (01) ==
LOC: ED 10:34
DX: R10.9 Unspecified abdominal pain (principal); R11.2 Nausea with vomiting, unspecified; D64.9 Anemia, unspecified; D25.9 Leiomyoma of uterus, unspecified
CPT/HCPCS: 36415; 74177; 80053; 81001; 81025; 83690; 85025; 85610; 85730; 86850; 86900; 86901; 87086; 96374; 96375; 99284; J1170; Q9967; 81003